=== PATIENT | female | born 2000 | race Caucasian/White ===

== ENCOUNTER → 2021-05-02 | Outpatient (CLI) | payer OTHER | LOC: US 13:30 | DX: N64.4 Mastodynia (principal); N63.20 Unspecified lump in the left breast, unspecified quadrant | CPT/HCPCS: 76641-LT ==

== ENCOUNTER 2021-08-16 15:29 | Outpatient (CLI) | payer OTHER | END 2021-08-16 16:37 | disposition home or self-care (01) | LOC: GENOP 15:29 | DX: O99.891 Other specified diseases and conditions complicating pregnancy (principal); M54.9 Dorsalgia, unspecified; Z3A.29 29 weeks gestation of pregnancy | CPT/HCPCS: 81001; G0463 ==

== ENCOUNTER 2021-09-06 17:28 | Outpatient (CLI) | payer OTHER | END 2021-09-06 20:57 | disposition home or self-care (01) | LOC: GENOP 17:28 | DX: O36.8130 Decreased fetal movements, third trimester, not applicable or unspecified (principal); O99.891 Other specified diseases and conditions complicating pregnancy; M54.9 Dorsalgia, unspecified; Z3A.32 32 weeks gestation of pregnancy; Z37.9 Outcome of delivery, unspecified | CPT/HCPCS: 59025 ==

== ENCOUNTER 2021-10-02 23:35 | Outpatient (CLI) | payer OTHER | END 2021-10-03 02:12 | disposition home or self-care (01) | LOC: GENOP 23:35 | DX: O47.03 False labor before 37 completed weeks of gestation, third trimester (principal); Z3A.36 36 weeks gestation of pregnancy | CPT/HCPCS: G0463 ==

== ENCOUNTER 2021-10-09 16:27 | Inpatient (IN) | payer OTHER ==
[~2021-10-09] VITALS: Ht 157.5 cm; Wt 102.5 kg
[2021-10-09] MEDS ORDERED: LABETALOL HCL100 MG PO (17:32)
[2021-10-09] MEDS ORDERED: PRENATAL VITAM1 EAC3 PO (17:32)
[2021-10-09 17:57] LABS: HEMOGLOBIN 10.3 gm/dl (12.3-15.3); RED BLOOD COUNT 4.13 M/UL (4.00-5.10); WHITE BLOOD COUNT 9.3 K/UL (4.5-11.0)
[2021-10-11] MEDS ORDERED: IBUPROFEN600 MG PO (23:21)
[2021-10-11] MEDS ORDERED: DOCUSATE SODIU250 MG PO (23:21)
[2021-10-12 06:43] LABS: HEMOGLOBIN 9.3 gm/dl (12.3-15.3)
[2021-10-13] MEDS ORDERED: TENORMIN25 MG PO (09:28)
== END 2021-10-13 11:19 | disposition home or self-care (01) | DRG 806 ==
LOC: GENOP 16:27 → OB 19:30
PROVIDERS: Obstetrics & Gynecology; ADMIT Obstetrics & Gynecology
PROC: 10907ZC Drainage of Amniotic Fluid, Therapeutic from Products of Conception, Via Natural or Artificial Opening (ICD-10-PCS; 2021-10-10)
PROC: 4A1H7CZ Monitoring of Products of Conception, Cardiac Rate, Via Natural or Artificial Opening (ICD-10-PCS; 2021-10-10)
PROC: 10H073Z Insertion of Monitoring Electrode into Products of Conception, Via Natural or Artificial Opening (ICD-10-PCS; 2021-10-10)
PROC: 3E033VJ Introduction of Other Hormone into Peripheral Vein, Percutaneous Approach (ICD-10-PCS; 2021-10-10)
PROC: 0UH97HZ Insertion of Contraceptive Device into Uterus, Via Natural or Artificial Opening (ICD-10-PCS; 2021-10-10)
PROC: 10E0XZZ Delivery of Products of Conception, External Approach (ICD-10-PCS; principal; 2021-10-11)
DX: O10.92 Unspecified pre-existing hypertension complicating childbirth (principal); D62 Acute posthemorrhagic anemia; Z37.0 Single live birth; R00.0 Tachycardia, unspecified; O99.344 Other mental disorders complicating childbirth; F32.A Depression, unspecified; Z3A.37 37 weeks gestation of pregnancy; Z80.3 Family history of malignant neoplasm of breast; Z82.49 Family history of ischemic heart disease and other diseases of the circulatory system; Z83.3 Family history of diabetes mellitus; Z91.040 Latex allergy status; O99.892 Other specified diseases and conditions complicating childbirth; O99.03 Anemia complicating the puerperium
CPT/HCPCS: 36415; 81001; 85014; 85018; 85025; J2590